=== PATIENT | female | born 1960 | race Caucasian/White ===

== ENCOUNTER 2018-05-07 15:30 | Emergency (ER) | payer OTHER ==
[~2018-05-07] VITALS: Ht 162.6 cm; Wt 89.0 kg
[2018-05-07 15:44] VITALS: BP 138/80; PULSE 96; RESP 20; Ht 162.6 cm; Wt 89.0 kg
[2018-05-07] MEDS ORDERED: LORA-441 PO (17:49)
[2018-05-07] MEDS ORDERED: LORAZEPAM 1 MG TAB PO ONE (18:00)
--- NOTE | 2018-05-07 23:40 | ERD ---
ER Documentation Chief Complaint Chief Complaint biba from home; pt c/o anxiety for weeks - worse today HPI This is a 58-year-old woman here for anxiety. She has a history of anxiety and has been using quetiapine recently for anxiety and insomnia. She states she feels sleepy throughout the day but still has insomnia. She denies suicidal homicidal ideation, no chest pain or shortness of breath, no fevers or chills. ROS All systems reviewed and are negative except as per history of present illness. Medications Home Meds Active Scripts Lorazepam* (Ativan*) 0.5 Mg Tablet, 0.5 MG PO Q8 PRN for ANXIETY, #12 TAB Prov:JUDIE VINES MD 05/07/18 PMhx/Soc Anxiety Medical and Surgical Hx: pt denies Medical Hx, pt denies Surgical Hx History of Surgery: No Anesthesia Reaction: No Hx Neurological Disorder: No Hx Respiratory Disorders: No Hx Cardiac Disorders: No Hx Psychiatric Problems: No Hx Miscellaneous Medical Probl: No Hx Alcohol Use: No Hx Substance Use: No Smoking Status: Never smoker FmHx Family History: No diabetes Physical Exam Vitals Vital Signs Date Temp Pulse Resp B/P (MAP) Pulse Ox O2 O2 Flow FiO2 Time Delivery Rate 05/07/18 97.8 96 20 138/80 99 15:44 (99) 05/07/18 98.7 80 22 137/76 97 15:43 (96) Physical Exam Const: Anxious, afebrile Head: Atraumatic Eyes: Normal Conjunctiva ENT: Normal External Ears, Nose and Mouth. Neck: Full range of motion. No meningismus. Resp: Clear to auscultation bilaterally Cardio: Regular rate and rhythm, no murmurs Abd: Soft, non tender, non distended. Normal bowel sounds Skin: No petechiae or rashes Back: No midline or flank tenderness Ext: No cyanosis, or edema Neur: Awake and alert x3, no focal deficits or facial asymmetry Psych: Appears anxious Results 24 hrs Current Medications Medications Dose Sig/Nidia Start Time Status Last (Trade) Ordered Route PRN Stop Time Admin Dose Reason Admin Lorazepam 1 mg ONCE ONCE 05/07/18 DC 05/07/18 (Ativan) PO 18:00 17:57 05/07/18 18:01 Procedures/MDM I administered Ativan 1 mg p.o. x1 Patient feels much better at this time, and vital signs are normal, symptoms have improved. I did give strict instructions to return to the ED if symptoms continue or worsen, patient will otherwise follow-up with primary care physician. Patient understood instructions and agreed to plan. Disclaimer: Inadvertent spelling and grammatical errors are likely due to EHR/dictation software use and do not reflect on the overall quality of patient care. Also, please note that the electronic time recorded on this note does not necessarily reflect the actual time of the patient encounter. Departure Diagnosis: Primary Impression: Anxiety Additional Impression: Insomnia Insomnia type: primary Qualified Codes: F51.01 - Primary insomnia Condition: Good [facility] Usted se snu hecho un examen mdico de control que le indica que no est en ankit condicin que requiera tratamiento urgente en el Departamento de Emergencia. Un estudio ms profundo y el tratamiento de sullivan condicin pueden esperar sin ningn riesgo hasta que usted sea atendida/o en el consultorio de sullivan mdico o ankit clnica. Es responsabilidad suya arreglar ankit hugo para el seguimiento del ernie. MANEJO DE CONDICIONES NO URGENTES EN EL FUTURO 1) Si usted tiene un mdico de atencin primaria: Usted debera llamar a sullivan mdico de atencin primaria antes de venir al departamento de emergencia. Despus de las horas de consultorio, sullivan doctor o sullivan asociado/a est disponible por telfono. El mdico o enfermero de leticia en el servicio telefnico puede asesorarle por javan medio para atender el problema, o ernie contrario se puede programar ankit hugo. 2) Si usted no tiene un mdico de atencin primaria: Llame al mdico o clnica de referencia que aparece abajo ruddy las horas de consultorio para hacer ankit hugo para que le vean. CLINICAS: [facility] [phone] [facility] [phone] [facility] [phone] [place] [id number] [phone] [facility] [phone] [facility]. [phone] JUDIE POOLE MD May 07, 2018 23:40
== END 2018-05-07 18:14 | disposition home or self-care (01) ==
LOC: E/R 15:30
DX: F41.9 Anxiety disorder, unspecified (principal); F51.01 Primary insomnia
CPT/HCPCS: Z7502; Z7610; 99283